=== PATIENT | female | born 1980 | race Caucasian/White ===

== ENCOUNTER 2017-01-10 17:18 | Emergency (ER) | payer OTHER ==
[2017-01-10] MEDS ORDERED: diphenhydrAMINE HCl 50 MG/ML 1 ML VIAL ONE (17:52)
[2017-01-10] MEDS ORDERED: Magnesium Sulfate 2 GM/100 ML BAG ONE (17:52)
[2017-01-10] MEDS ORDERED: Metoclopramide HCl 10 MG/2 ML VIAL ONE (17:58)
== END 2017-01-10 19:45 | disposition home or self-care (01) ==
LOC: BURERS 17:18
DX: G43.909 Migraine, unspecified, not intractable, without status migrainosus (principal); F41.9 Anxiety disorder, unspecified; F31.9 Bipolar disorder, unspecified; Z79.899 Other long term (current) drug therapy
CPT/HCPCS: 96365; 96367; 96375; J1200; J2765; J3475

== ENCOUNTER 2017-02-24 20:22 | Emergency (ER) | payer OTHER, SELFPAY ==
[2017-02-24] MEDS ORDERED: predniSONE 20 MG TAB ONE (21:20)
== END 2017-02-24 21:25 | disposition home or self-care (01) ==
LOC: BURERS 20:22
DX: M67.431 Ganglion, right wrist (principal); F31.9 Bipolar disorder, unspecified; F41.9 Anxiety disorder, unspecified; Z79.899 Other long term (current) drug therapy
CPT/HCPCS: 99283; J7506

== ENCOUNTER 2017-04-20 16:01 | Emergency (ER) | payer OTHER, SELFPAY ==
--- NOTE | 2017-04-20 17:26 | CT ---
CT BRAIN WITHOUT CONTRAST 04/20/17 HISTORY: Trauma, seizures. FINDINGS: No evidence of acute infarct, hemorrhage, midline shift or abnormal extra-axial fluid collections se en. The ventricular size is normal. The basilar cisterns patent. The bony calvarium is intact. The v isualized paranasal sinuses and mastoid air cells are well aerated. IMPRESSION: No CT evidence of acute intracranial process. POS: [facility]
[2017-04-20 17:32] LABS: #Basophils 0.1 thou/uL (0.0-0.2); #Eosinphils 0.2 thou/uL (0.0-0.7); #Lymphocytes 2.5 thou/uL (1.20-3.40); #Monocytes 0.6 thou/uL (0.11-0.59); #Neutrophils 5.2 thou/uL (1.40-6.50); %Basophils 1.2 % (0.0-1.0); %Eosinophils 2.3 % (0.0-10.0); %Lymphocytes 28.7 % (21.0-51.0); %Neutrophils 60.8 % (42.0-75.0); Hemoglobin 12.4 g/dL (12.0-16.0); Mean Corpuscular Hemoglobin 28.9 pg (27.0-31.0); Mean Corpuscular Volume 87.7 fl (81.0-99.0); Platelet Count 324 thou/uL (130-400); RBC Distribution Width 12.8 % (11.5-14.5); Red Blood Cell (RBC) Count 4.29 mill/uL (4.20-5.40); White Blood Cell (WBC) Count 8.6 thou/uL (4.8-10.8)
[2017-04-20 17:41] LABS: Acetaminophen Less than 6.0 mcg/mL (10.0-30.0); Alcohol Less than 10 mg/dL (Less than 10); Salicylate Less than 8.0 mg/dL (15.0-30.0)
[2017-04-20 17:44] LABS: ALT (SGPT) 24 U/L (8-55); AST (SGOT) 24 U/L (5-34); Albumin 3.8 g/dL (3.5-5.0); Alkaline Phosphatase 62 U/L (40-150); Anion Gap 14 mmol/L (10-20); BUN (Urea Nitrogen) 13 mg/dL (7.0-18.7); Bilirubin, Total 0.2 mg/dL (0.2-1.2); Calc. Creatinine Clearance 0 mL/min (70-130); Calcium 8.3 mg/dL (7.8-10.44); Carbon Dioxide 23 mmol/L (22-29); Chloride 108 mmol/L (98-107); Estimated GFR-MDRD 87; Globulin 3.5 g/dL (2.4-3.5); Glucose 102 mg/dL (70-105); Potassium 3.5 mmol/L (3.5-5.1); Protein, Total 7.3 g/dL (6.0-8.3); Sodium 141 mmol/L (136-145)
[2017-04-20 17:57] LABS: Cocaine Metabolite Screen Not Detected (NotDetected); Phencyclidine (PCP) Not Detected (NotDetected); THC/Cannabinoid Screen Not Detected (NotDetected)
[2017-04-20 17:58] LABS: Amphetamine Not Detected (NotDetected); Barbiturates Screen Not Detected (NotDetected); Benzodiazepine Screen Not Detected (NotDetected); Medtox Control Line Valid? VALID (VALID); Methadone Not Detected (NotDetected); Methamphetamine Not Detected (NotDetected); Opiate Screen Not Detected (NotDetected); Oxycodone Screen Not Detected (NotDetected); Tricyclic Screen Not Detected (NotDetected)
--- NOTE | 2017-04-20 17:59 | CT ---
CT OF THE CERVICAL SPINE WITHOUT CONTRAST 04/20/17 HISTORY: Fell at home. History of seizures. Neck pain. TECHNIQUE: Multiple contiguous axial images were obtained in a CT of the cervical spine without contrast. Sagit lay and coronal reformats were performed. FINDINGS: The head is turned at the cranio-occipital junction. The vertebral bodies and intervertebral discs o f the cervical spine demonstrate normal height and alignment without fracture or subluxation. No pre vertebral soft tissue swelling is seen. The posterior facets are well aligned. Although the head is turned, there is normal alignment betwee n the skull base and the cervical spine. IMPRESSION: No evidence of acute osseous abnormality of the cervical spine. POS: [facility]
[2017-04-20] MEDS ORDERED: Lorazepam 2 MG/ML VIAL ONE (18:17)
== END 2017-04-20 18:25 | disposition short-term general hospital (02) ==
LOC: BURERS 16:01
DX: G40.901 Epilepsy, unspecified, not intractable, with status epilepticus (principal); G81.91 Hemiplegia, unspecified affecting right dominant side; G43.909 Migraine, unspecified, not intractable, without status migrainosus; F41.9 Anxiety disorder, unspecified; F31.9 Bipolar disorder, unspecified; Z79.899 Other long term (current) drug therapy
CPT/HCPCS: 70450; 72125; 80053; 80306; 80307; 85025; 96374; J2060

== ENCOUNTER 2017-10-25 18:49 | Emergency (ER) | payer OTHER, SELFPAY ==
[2017-10-25 19:24] LABS: #Basophils 0.1 thou/uL (0.0-0.2); #Eosinphils 0.2 thou/uL (0.0-0.7); #Lymphocytes 3.6 thou/uL (1.20-3.40); #Monocytes 0.6 thou/uL (0.11-0.59); #Neutrophils 6.8 thou/uL (1.40-6.50); %Basophils 0.5 % (0.0-1.0); %Eosinophils 1.5 % (0.0-10.0); %Monocytes 5.3 % (0.0-10.0); %Neutrophils 60.6 % (42.0-75.0); Hemoglobin 12.6 g/dL (12.0-16.0); Mean Corpuscular HGB CONC 32.6 g/dL (32.0-36.0); Mean Corpuscular Hemoglobin 26.5 pg (27.0-31.0); Mean Corpuscular Volume 81.2 fl (81.0-99.0); Platelet Count 344 thou/uL (130-400); Red Blood Cell (RBC) Count 4.76 mill/uL (4.20-5.40); White Blood Cell (WBC) Count 11.2 thou/uL (4.8-10.8)
[2017-10-25] MEDS ORDERED: Benzonatate 100 MG CAP ONE (19:57)
[2017-10-25] MEDS ORDERED: methylPREDNISolone Acetate 40 mg/ml Vial ONE ×2 (19:57→19:59)
[2017-10-25] MEDS ORDERED: HYDROcodone/Acetaminophen 10/325 mg Tablet ONE (20:08)
--- NOTE | 2017-10-25 22:35 | RAD ---
RIGHT RIBS WITH PA CHEST 10/25/17 The chest film shows a normal sized heart and clear lungs. No infiltrate, effusion, or other acute ch bahman was seen. The ribs all appeared intact. No rib fractures were appreciated at this time. The medi astinum appears normal and the trachea is midline. There is no sign of pneumothorax. IMPRESSION: No significant finding. POS: HOME
== END 2017-10-25 20:32 | disposition home or self-care (01) ==
LOC: BURERS 18:49
DX: S23.41XA Sprain of ribs, initial encounter (principal); J20.9 Acute bronchitis, unspecified; G43.909 Migraine, unspecified, not intractable, without status migrainosus; I34.1 Nonrheumatic mitral (valve) prolapse; F41.9 Anxiety disorder, unspecified; F31.9 Bipolar disorder, unspecified; X58.XXXA Exposure to other specified factors, initial encounter
CPT/HCPCS: 36415; 85025; 96372; J1030

== ENCOUNTER 2019-04-07 19:49 | Emergency (ER) | payer MEDICAID, SELFPAY ==
[2019-04-07] MEDS ORDERED: SUMAtriptan Succinate 6 MG/0.5 ML VIAL ONE (20:09)
== END 2019-04-07 20:12 | disposition home or self-care (01) ==
LOC: BURERS 19:49
DX: G43.909 Migraine, unspecified, not intractable, without status migrainosus (principal); F41.9 Anxiety disorder, unspecified; F31.9 Bipolar disorder, unspecified; I34.1 Nonrheumatic mitral (valve) prolapse; Z79.899 Other long term (current) drug therapy
CPT/HCPCS: 96372; J3030

== ENCOUNTER 2019-05-18 18:53 | Emergency (ER) | payer MEDICAID, OTHER ==
[2019-05-18] MEDS ORDERED: Ketorolac Tromethamine 60 MG/2 ML VIAL ONE (19:22)
[2019-05-18] MEDS ORDERED: SUMAtriptan Succinate 6 MG/0.5 ML VIAL ONE (19:22)
== END 2019-05-18 20:05 | disposition home or self-care (01) ==
LOC: BURERS 18:53
DX: G43.909 Migraine, unspecified, not intractable, without status migrainosus (principal); I34.1 Nonrheumatic mitral (valve) prolapse; F41.9 Anxiety disorder, unspecified; F31.9 Bipolar disorder, unspecified; I38 Endocarditis, valve unspecified; Z79.899 Other long term (current) drug therapy
CPT/HCPCS: 96372; J1885; J3030